=== PATIENT | male | born 1955 | race Caucasian/White ===

== ENCOUNTER 2021-07-30 13:56 | Emergency (ER) | payer MEDICARE, OTHER ==
[~2021-07-30] VITALS: Ht 177.8 cm; Wt 95.5 kg
[2021-07-30] MEDS ORDERED: SODIUM CHLORIDE 0.9% 500 ML IV ONE (14:45)
[2021-07-30] MEDS ORDERED: CefTRIAXone 1 GM/DEXTROSE 50 ML IV ONE (14:45)
[2021-07-30] MEDS ORDERED: ACETAMINOPHEN 500 MG TABLET PO ONE (14:45)
[2021-07-30 14:53] LABS: BASOPHILS % (AUTO) 0.2 % (0.0-2.0); EOSINOPHILS % (AUTO) 0.4 % (1.0-6.0); HEMATOCRIT 25.9 % (41-53); HEMOGLOBIN 8.5 g/dL (13.5-17.5); LYMPHOCYTES # (AUTO) 1.1 K/uL (1.0-4.8); LYMPHOCYTES % (AUTO) 11.6 % (22.0-44.0); MEAN CORPUSCULAR HEMOGLOBIN 30.8 pg (26.0-34.0); MEAN CORPUSCULAR VOLUME 93 fL (80-100); MONOCYTES # (AUTO) 1.2 K/uL (0.1-1.0); MONOCYTES % (AUTO) 12.7 % (2.0-9.0); NEUTROPHILS # (AUTO) 7.3 K/uL (1.8-7.7); NEUTROPHILS % (AUTO) 75.1 % (40.0-70.0); PLATELET COUNT (AUTO) 316 K/uL (150-450); RED BLOOD CELL COUNT(AUTO) 2.77 MIL/uL (4.50-5.90); RED CELL DISTRIBUTION WIDTH 16.7 % (11.5-14.5)
[2021-07-30 14:56] LABS: CALCIUM, TOTAL 8.3 mg/dL (8.8-10.5); CREATININE 1.78 mg/dL (0.60-1.30); POTASSIUM 4.2 mmol/L (3.5-5.1)
[2021-07-30 15:03] LABS: ALBUMIN 2.4 g/dL (3.4-5.0); BILIRUBIN,TOTAL 0.4 mg/dL (0.1-1.0); TOTAL PROTEIN, SERUM 7.8 g/dL (6.4-8.2)
[2021-07-30 15:04] LABS: LACTIC ACID 1.6 mmol/L (0.4-2.0)
[2021-07-30 15:07] LABS: INR 1.1 (0.9-1.1); PROTHROMBIN TIME 11.6 SEC (9.4-11.6)
[2021-07-30 18:14] LABS: APPEARANCE,URINE CLEAR (CLEAR); BILIRUBIN,URINE NEGATIVE (NEGATIVE); GLUCOSE, URINE (UA) NEGATIVE (NEGATIVE); KETONES,URINE TRACE mg/dL (NEGATIVE); LEUKOCYTE ESTERASE ,URINE NEGATIVE (NEGATIVE); NITRATE,URINE NEGATIVE (NEGATIVE); OCCULT BLOOD,URINE NEGATIVE (NEGATIVE); PH,URINE 5.5 (5.0-8.0); PROTEIN,URINE 30-70 mg/dL (NEGATIVE); SPECIFIC GRAVITIY, URINE 1.011 (1.003-1.030); UROBILINOGEN,URINE <=1.0 mg/dL (<=1.0)
[2021-07-30 21:00] VITALS: BP 102/57
[2021-08-01] MEDS ORDERED: ALBU8HFA IH (18:07)
[2021-08-01] MEDS ORDERED: RANO500T3 PO (18:07)
[2021-08-01] MEDS ORDERED: FLUO20CA36 PO (18:07)
[2021-08-01] MEDS ORDERED: AMLO-257 PO (18:07)
[2021-08-01] MEDS ORDERED: GABA-1181 PO (18:07)
[2021-08-01] MEDS ORDERED: FLUT16H NASAL (18:07)
[2021-08-01] MEDS ORDERED: ASPI-1450 PO (18:07)
[2021-08-01] MEDS ORDERED: TRAZ-257 PO (18:07)
[2021-08-01] MEDS ORDERED: CARV3 PO (18:07)
[2021-08-01] MEDS ORDERED: ATOR40TA28 PO (18:07)
[2021-08-01] MEDS ORDERED: SACU1TAB PO (18:07)
[2021-08-01] MEDS ORDERED: FLUT1BLS3 IH (18:07)
[2021-08-01] MEDS ORDERED: QUET100T PO (18:07)
[2021-08-01] MEDS ORDERED: INSLAN SQ (18:07)
[2021-08-01] MEDS ORDERED: CLON-592 PO (18:07)
[2021-08-01] MEDS ORDERED: CHOL25TA4 PO (18:07)
[2021-08-01] MEDS ORDERED: OMEP20 PO (18:07)
[2021-08-01] MEDS ORDERED: BACL10TA PO (18:07)
[2021-08-01] MEDS ORDERED: MONT-35 PO (18:07)
[2021-08-01] MEDS ORDERED: POTA8TAB71 PO (18:07)
[2021-08-01] MEDS ORDERED: HYDR-4723 PO (18:07)
[2021-08-01] MEDS ORDERED: FERR325T27 PO (18:07)
[2021-08-01] MEDS ORDERED: TAMS-13 PO (18:07)
[2021-08-02] MEDS ORDERED: HYDR-4584 PO (19:35)
[2021-08-02] MEDS ORDERED: LEVO25TA9 PO (19:35)
[2021-08-02] MEDS ORDERED: TRAZ-283 PO (19:35)
[2021-08-10] MEDS ORDERED: BENZ-70 PO (14:48)
[2021-08-10] MEDS ORDERED: ALBU8HFA IH (14:49)
[2021-08-10] MEDS ORDERED: NITR-75 PO (14:50)
== END 2021-07-30 21:29 | disposition home or self-care (01) ==
LOC: EMS 13:58
DX: R33.9 Retention of urine, unspecified (principal); E11.9 Type 2 diabetes mellitus without complications; F10.20 Alcohol dependence, uncomplicated; F17.210 Nicotine dependence, cigarettes, uncomplicated; I10 Essential (primary) hypertension; I95.9 Hypotension, unspecified; R41.0 Disorientation, unspecified
CPT/HCPCS: 36415; 51702; 71045; 80053; 81003; 82962; 83605; 84484; 85025; 85610; 85730; 87040; 93005; 96365; 99285; J0696; J7040